=== PATIENT | female | born 1980 | race Caucasian/White ===

== ENCOUNTER 2018-06-19 21:31 | Emergency (ER) | payer OTHER ==
[~2018-06-19] VITALS: Ht 170.2 cm; Wt 95.3 kg
--- NOTE | 2018-06-19 21:40 | NUR ---
EKG COMPLETED IN TRIAGE ROOM PER PROTOCOL. REVIEWED BY DR HURLEY.
--- NOTE | 2018-06-19 22:40 | NUR ---
pt bib self. comp of having "chest pain and shortness of breath". ekg completed and reviewed by dr triplett. pt aox4. no radiating pain. no dizziness noted. -n/v. ambulatory w,steady gait. aware of pt condition. awaiting eval.
[2018-06-19 23:31] VITALS: BP 148/96
== END 2018-06-19 23:34 | disposition home or self-care (01) ==
LOC: ER 21:31
DX: F41.9 Anxiety disorder, unspecified (principal); Z60.2 Problems related to living alone
CPT/HCPCS: 93005; 99284; A4606